=== PATIENT | female | born 1980 | race Caucasian/White ===

== ENCOUNTER 2024-09-12 16:12 | Emergency (ER) | payer OTHER, SELFPAY ==
[2024-09-12 16:17] VITALS: BP 137/91; PULSE 112; TEMP 37; O2SAT 97; BMI 25.4
--- NOTE | 2024-09-12 16:26 | ED.URI1 ---
HPI - URI/Sore Throat General Chief Complaint: Upper Respiratory Infection Stated Complaint: COUGH, CONGESTION Time Seen by Provider: 09/12/24 16:21 History of Present Illness HPI Narrative: 44 year old female presents to the ED for cough, congestion, SOB. Onset was 2 weeks ago. Reports sinus and chest congestion, sinus drainage. Denies fever, chills. Multiple household members have been ill. She uses a vape. Related Data Previous Rx's ?Medication ?Instructions ?Recorded albuterol sulfate 90 mcg/actuation 2 inh inhalation Q6H PRN shortness 09/12/24 aerosol inhaler of breath or wheezing #8.5 grams amoxicillin 500 mg capsule 500 mg PO BID 10 days #20 caps 09/12/24 prednisone 10 mg tablet See Rx Instructions .Route 09/12/24 .COMPLEX #30 tabs Allergies Allergy/AdvReac Type Severity Reaction Status Date / Time No Known Drug Allergies Allergy Verified 09/12/24 16:17 Review of Systems ROS Constitutional Denies: fever or chills Ears, nose, mouth, and throat Reports: nasal discharge and nasal congestion; Denies: throat pain or neck pain Cardiovascular Denies: chest pain Respiratory Reports: shortness of breath and cough Musculoskeletal Denies: back pain or neck pain Neurological Denies: headache PFSH PFSH Social History Little interest or pleasure in doing things: not at all Feeling down, depressed, or hopeless: not at all Exam Constitutional Vital Signs, click to edit/add: Last Vital Signs Temp 98.6 F 09/12/24 16:17 Pulse 107 H 09/12/24 17:19 Resp 18 09/12/24 16:17 BP 137/91 09/12/24 16:17 Pulse Ox 97 09/12/24 17:19 O2 Del Method Room Air 09/12/24 17:19 HENMT Nose: nasal discharge External ear: external ears normal Tympanic membrane: TM abnormal TM laterality: bilateral erythematous Mouth: oral and palatal mucosa normal, lip normal and tongue normal Throat: posterior oropharynx normal and uvula midline Eye Common normals: conjunctivae normal and no scleral icterus Neck & C-Spine Common normals: supple Chest Chest: symmetrical chest wall rise Respiratory Common normals: normal respiratory effort Effort & inspection: able to speak in complete sentences and symmetric chest movement Auscultation: diminished lung sounds Cardio Common normals: regular rhythm Rate: tachycardic Neuro Common normals: oriented x3 and moves all extremities Sensorium/orientation: awake and alert Course Vital Signs Vital signs: Vital Signs Temperature 98.6 F 09/12/24 16:17 Pulse Rate 112 H 09/12/24 16:17 Respiratory Rate 18 09/12/24 16:17 Blood Pressure 137/91 09/12/24 16:17 Pulse Oximetry 97 09/12/24 16:17 Temperature 98.6 F 09/12/24 16:17 Pulse Rate 107 H 09/12/24 17:19 Respiratory Rate 18 09/12/24 16:17 Blood Pressure 137/91 09/12/24 16:17 Pulse Oximetry 97 09/12/24 17:19 Oxygen Delivery Method Room Air 09/12/24 17:19 MDM - URI/Sore Throat MDM Narrative Medical decision making narrative: Chest x-ray was negative for acute findings. Covid-19 and influenza were negative. The patient will be placed on antibiotics for otitis media. Prescriptions were provided for amoxicillin, Proventil, and prednisone. Follow up with pcp for a recheck, further evaluation and treatment. Return precautions were discussed. Differential Diagnosis Differential diagnosis: Likely upper respiratory infection, otitis media, viral infection, bronchitis and influenza Medical Records Attestation: I reviewed the patient's medical records. Lab Data Attestation: I reviewed the patient's lab results. Labs: Lab Results 09/12/24 Range/Units 16:20 Influenza Type A Ag Negative Influenza Type B Ag Negative SARS-CoV-2 Ag (CV2AG) Negative (NEGATIVE) Imaging Data Chest x-ray: Attestation: I have reviewed the pertinent imaging results. Radiologist's impression: No acute cardiopulmonary process. Discharge Plan Discharge Chief Complaint: Upper Respiratory Infection Clinical Impression: Upper respiratory infection, Otitis media Patient Disposition: Home, Self-Care Time of Disposition Decision: 17:11 Condition: Good Mode of Transportation: Private Vehicle Prescriptions / Home Meds: New amoxicillin 500 mg capsule 500 mg PO BID 10 Days Qty: 20 0RF prednisone 10 mg tablet See Rx Instructions .ROUTE .COMPLEX Qty: 30 0RF Rx Instructions: Take 5 tablets on days 1-2, 4 tabs on days 3-4, 3 tabs on days 5-6, 2 tabs on days 7-8, 1 tab on days 9-10. albuterol sulfate 90 mcg/actuation HFA aerosol inhaler 2 inh inhalation Q6H PRN (Reason: shortness of breath or wheezing) Qty: 8.5 0RF Print Language: Luxembourgish Instructions: Ear Infection (ED), Upper Respiratory Infection (ED) Additional Instructions: Return to the ER for worsening symptoms. Referrals: Dwight Suarez DO [Primary Care Provider] - 1 week Discharge Date/Time: 09/12/24 17:26
[2024-09-12] MEDS: METHYLPREDNISOLONE SOD SUCC PF 125 MG/2 ML VIAL IM (16:33)
[2024-09-12 16:51] LABS: Influenza Virus A Antigen Negative; Influenza Virus B Antigen Negative; Internal Control Within Normal Limits; SARS-CoV-2 Ag NEGATIVE (NEGATIVE)
[2024-09-12] MEDS: LEVALBUTEROL HCL 1.25 MG/3 ML VIAL NEB IH (17:18)
[2024-09-12 17:19] VITALS: PULSE 107; O2SAT 97
== END 2024-09-12 17:26 | disposition home or self-care (01) ==
PROVIDERS: Nurse Practitioner Family; Emergency Provider Emergency Medicine; PCP Family Medicine Adult Medicine
DX: J06.9 Acute upper respiratory infection, unspecified (principal); H66.90 Otitis media, unspecified, unspecified ear
CPT/HCPCS: 71046; 87804; 87811; 94640; 96372; 99285; J2919

== ENCOUNTER 2025-03-26 14:42 | Outpatient (OUT) | payer OTHER, SELFPAY | END 2025-03-26 14:43 | disposition home or self-care (01) | LOC: LAB 14:44 | PROVIDERS: PCP Family Medicine Adult Medicine; Visit Provider Nurse Practitioner Primary Care | DX: F11.11 Opioid abuse, in remission (principal) | CPT/HCPCS: 36415; 87517 ==